=== PATIENT | male | born 1990 | race Caucasian/White ===

== ENCOUNTER 2021-04-15 15:19 | Emergency (ER) | payer OTHER, SELFPAY ==
[2021-04-15] VITALS (13 sets, daily range): BP systolic 141–154; BP diastolic 81–99; PULSE 77–115; RESP 12–23; TEMP 36.6–37.3; O2SAT 96–100
--- NOTE | ~2021-04-15 | XR_ITS ---
EXAMINATION: XR chest 2V DATE: 04/15/2021 15:54 INDICATION: Midsternal chest pain. TECHNIQUE: Frontal and lateral views of the chest were obtained. COMPARISON: None. FINDINGS: The chest demonstrates clear lungs without pneumonia, pleural effusion, or pneumothorax. Th e heart size is normal. IMPRESSION: 1. No acute cardiopulmonary disease. Reviewed, dictated and finalized at location A.
--- NOTE | 2021-04-15 15:22 | ECG_ITS ---
Measurements Intervals Bells Rate: 108 P: 12 AL: 140 QRS: 48 QRSD: 93 T: 11 QT: 301 QTc: 404 Interpretive Statements SINUS TACHYCARDIA BORDERLINE ST-T WAVE ABNORMALITY- INFERIOR LEADS BASELINE ARTIFACT- I, II, III, AVR, AVL, V1-V2 ABNORMAL ECG Electronically Signed On 04-15-2021 15:58:47 CDT by Evans Combs D.O.
[2021-04-15 15:38] LABS: Basophils Percent Auto 0.3 % (0.2-1.2); Eosinophils Absolute Auto 0.1 K/mm3 (0-0.3); Eosinophils Percent Auto 1.4 % (0-4.4); Hematocrit 51.4 % (42.0-52.0); Hemoglobin 18.1 g/dL (14.0-18.0); Immature Granulocyte Absolute 0.02 K/mm3 (0.00-0.031); Immature Granulocyte Percent A 0.3 % (0-0.5); Lymphocytes Absolute Auto 2.03 K/mm3 (0.9-3.2); Lymphocytes Percent Auto 28.6 % (18.3-44.2); Mean Corpuscular HGB Conc 35.2 g/dl (32-36); Mean Corpuscular Hemoglobin 30.6 pg (26-34); Mean Platelet Volume 11.3 fl (7.4-10.4); Monocytes Absolute Auto 0.6 K/mm3 (0.1-0.6); Monocytes Percent Auto 7.9 % (2.6-8.5); Neutrophils Absolute Auto 4.4 K/mm3 (1.3-6.7); Neutrophils Percent Auto 61.5 % (45.5-73.1); Platelet Count Result 157 k/mm3 (150-375); Red Blood Count 5.91 M/mm3 (4.6-6.20); Red Cell Distribution Width 12.6 % (11.5-14.5); White Blood Count 7.1 K/mm3 (4.5-10.0)
[2021-04-15 15:47] LABS: Anion Gap 11 mmol/L (8-16); Blood Urea Nitrogen 14 mg/dL (9-20); Calcium 10.1 mg/dL (8.4-10.2); Carbon Dioxide 27 mmol/L (22-30); Chloride 106 mmol/L (98-107); Estimated CRCL calculation 94 ml/min; Estimated Glomerular Filt Rate > 60; Glucose 102 mg/dL (75-110); Sodium 144 mmol/L (137-145)
[2021-04-15 15:54] LABS: INR 1.1; Prothrombin Time 14.5 Seconds (11.1-14.7)
[2021-04-15 15:55] LABS: Partial Thromboplastin Time 29.8 SECONDS (22.3-36.8)
[2021-04-15 15:59] LABS: Troponin I < 0.012 ng/mL (0.000-0.034)
--- NOTE | 2021-04-15 18:51 | ED.CHESTPAIN ---
HPI - Chest Pain General Chief Complaint: Chest Pain Stated Complaint: chest pain Time Seen by Provider: 04/15/21 18:32 Source: patient Mode of arrival: EMS Limitations: no limitations History of Present Illness HPI narrative: Patient is a 30 year old male who presents by EMS with complaints of chest pain. Patient reports intermittent chest pain over the past month. He reports increasing pain while at work today. He reports chest pain and sob and called EMS. Patient reports having same problems in the past and had a rx for Xanax which helped. Patient reports history of anxiety. Patient took 324 ASA and nitro given en route. Denies all chest pain and shortness of breath at this time. Related Data Home Medications Medication Instructions Recorded Confirmed No Home Medications 04/15/21 04/15/21 Allergies Allergy/AdvReac Type Severity Reaction Status Date / Time [facility] Allergy Unknown Verified 04/15/21 15:23 Review of Systems Review of Systems: Narrative: CONSTITUTIONAL: Denies fever, chills, or sweats. EYES: Denies visual changes, redness, or discharge. ENT: Denies rhinorrhea, congestion, sore throat, or otalgia. CARDIOVASCULAR: Reports chest pain, denies palpitations, or edema. RESPIRATORY: Denies cough, reports dyspnea. GASTROINTESTINAL: Denies abdominal pain, nausea, vomiting, or diarrhea. GENITOURINARY: Denies dysuria or hematuria. SKIN: Denies rash or itching. MUSCULOSKELETAL: Denies back pain, joint pain, or myalgia. NEUROLOGIC: Denies headache, numbness, dizziness, or weakness. PSYCHIATRIC: Denies anxiety or depression. [facility] Past Medical History Medical History (Updated 04/15/21 @ 19:28 by MARILEE Parra) Anxiety Polycythemia Surgical History Surgical History (Updated 04/15/21 @ 19:22 by MARILEE Parra) No significant past surgical history Family History Family History (Updated 04/15/21 @ 19:22 by MARILEE Parra) Other No significant family history Social History Social History (Updated 04/15/21 @ 19:22 by MARILEE Parra) Smoking status: Current every day smoker Tobacco type: e-cigarettes/vaping Alcohol intake: current Alcohol use details: occasional Substance use: never Occupation/Education: occupation Gender identity (if verbalized by the patient): Male Comments At the time of signature, I have reviewed and agree with nursing past medical, surgical, social, and family history unless otherwise noted. Please see nursing chart for further information. There is no relevant family history pertinent to the presenting complaint. Exam Narrative: Exam Narrative: GENERAL: Well-appearing, well-nourished, and in no acute distress. HEAD: Normocephalic, atraumatic. EYES: EOMI. No redness or drainage. Conjunctiva are normal. ENT: Mucous membranes pink and moist. CHEST: No respiratory distress. Clear to auscultation. HEART: Regular rate and rhythm. No murmur appreciated. Normal peripheral pulses. GI: Soft, nontender without rebound, or guarding. No distention. Bowel sounds normal in all quadrants. MUSCULOSKELETAL: No bony tenderness. EXTREMITIES: Normal range of motion. No edema. SKIN: Warm, dry, no rash. NEURO: No focal deficits. Alert and oriented x3. Gait steady. PSYCH: Normal affect. No signs of depression or anxiety. Course Vital Signs Vital signs: Vital Signs Temperature 36.6 C 04/15/21 15:22 Pulse Rate 102 H 04/15/21 15:22 Respiratory Rate 18 04/15/21 15:22 Blood Pressure 142/92 H 04/15/21 15:22 Pulse Oximetry 98 04/15/21 15:22 Temperature 36.6 C 04/15/21 15:22 Pulse Rate 102 H 04/15/21 15:22 Respiratory Rate 18 04/15/21 15:22 Blood Pressure 142/92 H 04/15/21 15:22 Pulse Oximetry 98 04/15/21 15:22 Reviewed. Patient has been instructed to follow-up with his PCP regarding his blood pressure. MDM - Chest Pain MDM Narrative Medical decision making narrative: Patient's labs a
[2021-04-15 19:15] LABS: Troponin I < 0.012 ng/mL (0.000-0.034)
--- NOTE | 2021-04-15 19:22 | PC.NURSE ---
Report received from RAISSA Rivas. This RN to continue care. Pt's 3 hour troponin collected and pending. Pt denies needs at present.
== END 2021-04-15 19:44 | disposition home or self-care (01) ==
PROVIDERS: Emergency Medicine; Emergency Provider Nurse Practitioner
DX: R07.9 Chest pain, unspecified (principal); F41.9 Anxiety disorder, unspecified; D75.1 Secondary polycythemia; F17.290 Nicotine dependence, other tobacco product, uncomplicated
CPT/HCPCS: 36415; 71046; 80048; 84484; 85025; 85610; 85730; 93005; 99284

== ENCOUNTER 2021-09-14 10:25 | Emergency (ER) | payer OTHER, SELFPAY ==
[2021-09-14 10:54] VITALS: BP 157/109; PULSE 135; RESP 18; TEMP 36.4; O2SAT 99
--- NOTE | 2021-09-14 11:52 | ED.GENADULT ---
HPI - General Adult General Chief complaint: Unspecified Stated complaint: possible HIV exposure Time Seen by Provider: 09/14/21 11:27 Source: patient Mode of arrival: ambulatory Limitations: no limitations History of Present Illness HPI narrative: 31-year-old male 2 days ago he found some blood on his left hand This came after he had picked his nose He does not really think the blood came out of his nose but it could have His other concern is that he lives with a HIV-positive individual who does glucose monitoring and he thinks it possibly could have been there blood although he really has no idea how he could have come in contact with it Related Data Home Medications Medication Instructions Recorded Confirmed omeprazole 09/14/21 Allergies Allergy/AdvReac Type Severity Reaction Status Date / Time cefaclor [From Ceclor] Allergy Unknown Verified 04/15/21 15:23 Review of Systems Integumentary/Breasts: Comments: No wounds Hematologic/Lymphatic: Hematologic/Lymphatic: Denies easy bleeding, Denies easy bruising and Denies lymphadenopathy PMFSH Past Medical History Medical History (Updated 09/14/21 @ 12:07 by Pacheco Saucedo MD) Anxiety Polycythemia Surgical History Surgical History (Updated 04/15/21 @ 19:22 by MARILEE Parra) No significant past surgical history Family History Family History (Updated 04/15/21 @ 19:22 by MARILEE Parra) Other No significant family history Social History Social History (Updated 04/15/21 @ 19:22 by MARILEE Parra) Smoking status: Current every day smoker Tobacco type: e-cigarettes/vaping Alcohol intake: current Alcohol use details: occasional Substance use: never Gender identity (if verbalized by the patient): Male Exam Const: General: cooperative and no acute distress Resp: Effort & Inspection: normal respiratory effort and not labored Skin: Lesions: no lesions Neuro: General: patient oriented x3 Psych: Affect: Anxious affect present Course Course Emergency Course: Discussed with patient, very unlikely that this is an exposure much less a high risk exposure Contacted his primary as well, we were considering just sending a baseline HIV on the patient but that is problematic for them to follow-up since they are an [facility] office not affiliated with [place], so if he calls them they will send him to the outpatient lab that they use Vital Signs Vital signs: Vital Signs Temperature 36.4 C L 09/14/21 10:54 Pulse Rate 135 H 09/14/21 10:54 Respiratory Rate 18 09/14/21 10:54 Blood Pressure 157/109 H 09/14/21 10:54 Pulse Oximetry 99 09/14/21 10:54 Temperature 36.4 C L 09/14/21 10:54 Pulse Rate 135 H 09/14/21 10:54 Respiratory Rate 18 09/14/21 10:54 Blood Pressure 157/109 H 09/14/21 10:54 Pulse Oximetry 99 09/14/21 10:54 Medical Decision Making Vital Signs Vital Signs: Vital Signs Temperature 36.4 C L 09/14/21 10:54 Pulse Rate 135 H 09/14/21 10:54 Respiratory Rate 18 09/14/21 10:54 Blood Pressure 157/109 H 09/14/21 10:54 Pulse Oximetry 99 09/14/21 10:54 Temperature 36.4 C L 09/14/21 10:54 Pulse Rate 135 H 09/14/21 10:54 Respiratory Rate 18 09/14/21 10:54 Blood Pressure 157/109 H 09/14/21 10:54 Pulse Oximetry 99 09/14/21 10:54 Discharge Plan Discharge Clinical Impression: Concern about infectious disease without diagnosis Patient Disposition: Home, Self-Care Condition: Stable Instructions: HIV Infection (DC) Additional Instructions: If you call your primary care office today they will refer you to a testing lab Prescriptions: No Action omeprazole RF: 0 Follow-up/Referrals: John,YAIMA Spence [Primary Care Provider] - (Call today)
[2021-09-14 12:23] VITALS: BP 143/92; PULSE 89; RESP 18; TEMP 36.4; O2SAT 97
== END 2021-09-14 12:25 | disposition home or self-care (01) ==
PROVIDERS: Emergency Provider Emergency Medicine; PCP Nurse Practitioner
DX: Z77.21 Contact with and (suspected) exposure to potentially hazardous body fluids (principal); F41.9 Anxiety disorder, unspecified
CPT/HCPCS: 99281